=== PATIENT | female | born 1960 | race Caucasian/White ===

== ENCOUNTER 2018-01-08 10:00 | Emergency (ER) | payer MEDICAID | END 2018-01-08 11:37 | disposition home or self-care (01) | LOC: FTE 10:00 | DX: S91.012A Laceration without foreign body, left ankle, initial encounter (principal); W25.XXXA Contact with sharp glass, initial encounter; Y92.9 Unspecified place or not applicable | CPT/HCPCS: 73610; 99283-25 ==